=== PATIENT | female | born 1990 | race Caucasian/White ===

== ENCOUNTER 2022-02-03 01:13 | Emergency (ER) | payer SELFPAY ==
[2022-02-03 03:11] LABS: Absolute Lymphocytes (CBC) 4.7 K/uL (0.7-4.9); Hematocrit 32.4 % (36.0-45.0); Lymphocytes % 51.3 % (15.3-44.8); MPV 7.7 fL (7.6-11.3); RBC Red Blood Cell Count 3.27 M/uL (3.86-4.86)
[2022-02-03 03:28] LABS: Albumin 4.4 g/dL (3.4-5.0); Bilirubin Total 0.4 mg/dL (0.2-1.0); Potassium 3.4 mmol/L (3.5-5.1); Protein, Total 7.8 g/dL (6.4-8.2)
[2022-02-03 03:47] LABS: Blood Morphology Comment NOT SEEN (NOT SEEN); Platelet Estimate ADEQ
[2022-02-03] MEDS ORDERED: MORPHINE 4 MG/ML SYR ONE (04:46)
[2022-02-03] MEDS ORDERED: ONDANSETRON 4 MG/2 ML VIAL ONE (04:46)
--- NOTE | 2022-02-03 04:55 | ER ---
Nurse's Notes [facility] Name: Yadira Gauthier Age: 31 yrs Sex: Female : 1990 Arrival Date: 02/03/2022 Time: 01:17 Bed 8 Private MD: Diagnosis: Headache;Spinal/Musculoskeletal Presentation: 02/03 01:36 Chief complaint: Patient states: "I have a spine disease and I got hit by my sons bed vc1 and not there's lots of pressure and where I normally have a crevice on my head there's not one right now and it feels like my head is pulsating.". Coronavirus screen: Vaccine status: Patient reports being unvaccinated. Ebola Screen: No symptoms or risks identified at this time. Initial Sepsis Screen: Does the patient meet any 2 criteria? No. Patient's initial sepsis screen is negative. Does the patient have a suspected source of infection? No. Patient's initial sepsis screen is negative. Risk Assessment: Do you want to hurt yourself or someone else? Patient reports no desire to harm self or others. Onset of symptoms is unknown. 01:36 Method Of Arrival: Ambulatory vc1 01:36 Acuity: ADÁN 3 vc1 Triage Assessment: 01:42 Headache History: The patient has had previous headaches. General: Appears in no vc1 apparent distress. uncomfortable, Behavior is calm, cooperative, appropriate for age. Pain: Complains of pain in face and left sternocleidomastoid Pain radiates to left sternocleidomastoid Pain currently is 7 out of 10 on a pain scale. Pain began gradually, Also complains of nausea, inability to perform activities of daily living, sleeplessness. Neuro: Level of Consciousness is awake, alert, obeys commands, Oriented to person, place, time, situation, Appropriate for age. 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 - Social history:: Smoking status: Patient reports the use of cigarette tobacco products, smokes one-half pack cigarettes per day. Screenin:11 Abuse screen: Denies threats or abuse. Denies injuries from another. Nutritional kd3 screening: No deficits noted. Tuberculosis screening: No symptoms or risk factors identified. Fall Risk IV access (20 points). Vital Signs: 01:36 BP 118 / 85; Pulse 58; Resp 16; Temp 98.8; Pulse Ox 98% on R/A; Weight 54.43 kg; Height vc1 5 ft. 4 in. (162.56 cm); Pain 8/10; 01:36 Body Mass Index 20.60 (54.43 kg, 162.56 cm) vc1 ED Course: 01:17 Patient arrived in ED. wm 01:42 Triage completed. vc1 01:45 Arm band placed on right wrist. vc1 01:47 Juan Owens MD is Attending Physician. kdr 01:51 Jennifer Ho RN is Primary Nurse. kd3 02:28 CT Head Brain wo Cont In Process Unspecified. EDMS 02:41 Missed attempt(s): 20 gauge in left antecubital area. Bleeding controlled, band aid al4 applied, catheter tip intact. 02:53 I went into the patients room, her spouse was sitting in the bed with her. I introduced st1 myself and asked her to remove her thick sweatshirt so vital signs ( BP) can be taken accurately. I also informed her that the doctor ordered an IV access and labs which will be drawn from her IV access once it is established. The patient began to curse. " why the fuck do you have it so cold in the ER and why the fuck do you want me to take off my sweatshirt when you fucking people have it so cold in here". Her was attempting to calm her down asking her to remove her sweatshirt in which she complied. She then stated, : can I at least keep my god damn shirt on", which I replied yes as I handed her a hospital gown. I sat down to the right side of the patient and asked if I could use her right arm to start her IV. She said, " I don't even want to be here", as she looked at her spouse. " I want to leave because of these fucking stupid people and their IV shit". Her stated, we need to see what is wrong with you and do you want me to tell the kids you walked out of the ER? The patients response was, " I dont care what you tell the fucking kids because you are forcing me to be here and if this bitch hurts my arm with the IV I will rip it out because I don't want to be here". I informed the patient that I will do my best not to hurt her, as she turned to me and stated she did not want the IV access. I informed both the patient and her spouse that once she is ready for an IV, to let me know and I will come back to start her IV and draw the labs ordered. 02:55 The patients spouse came to the station 1 nurses station, apologized, and stated she is st1 ready for her IV. ( SHARI Gross witnessed this interaction.). 02:57 I went into the patients room #8 with the IV access items and asked the patient which st1 arm she would like to have me start her IV. The patient held out both of her arms and stated, " stick me where ever you want as I don't have a choice". I stated, " I am giving you a choice on which arm you would like IV access in". She stated, I don't care because you can stick me and then I am going to turn you in because I don't want and IV in my arm". I told her that I will not be starting an IV on her at this time and I walked out of the room. I notified SHARI Eduardo charge nurse and Dr. Owens on the interaction that I had with the patient. 03:11 Patient has correct armband on for positive identification. Placed in gown. Bed in low kd3 position. Call light in reach. 03:11 CBC with Diff Sent. kd3 03:11 CMP Sent. kd3 05:03 No provider procedures requiring assistance completed. Inserted saline lock: 22 gauge kd3 in right antecubital area, using aseptic technique. IV discontinued, intact, bleeding controlled, No redness/swelling at site. Pressure dressing applied. Administered Medications: 04:47 Drug: morphine 4 mg Route: IVP; Site: right antecubital; kd3 04:47 Drug: Zofran (Ondansetron) 4 mg Route: IVP; Site: right antecubital; kd3 Outcome: 04:54 Discharge ordered by . kdr 05:04 Discharged to home ambulatory. kd3 05:04 Condition: stable 05:04 Discharge instructions given to patient, family, Instructed on discharge instructions, follow up and referral plans. Demonstrated understanding of instructions, follow-up care, medications, Prescriptions given X 1. 05:05 Patient left the ED. kd3 Signatures: Dispatcher [employer] EDMS Juan Owens MD MD kdr Marsh, Wendy wm Doucette, Kyli, RN RN kd3 Onofre Davalos Shellie, RN RN st1 Samantha Rasmussen RN RN vc1 Corrections: (The following items were deleted from the chart) 03:03 02:03 The patient has become aggressive and argumentative, using foul language toward st1 me and her spouse. She has refused her IV 2 times and has threatened to rip her IV out if it hurts her. I asked which arm she wants her IV in, she stated, " it is not my choice, it is your choice and I will be turning you into administration after you put that damn IV in my arm." I did not place the IV in the patient. SHARI Eduardo and Dr. Owens notified of the patients refusal. st1 03:05 03:03 The patients spouse came to the station 1 nurses station, apologized, and stated st1 she is ready for her IV. ( SHARI Gross witnessed this interaction. st1 03:14 02:55 The patients spouse came to the station 1 nurses station, apologized, and stated st1 she is ready for her IV. ( SHARI Gross witnessed this interaction. st1
--- NOTE | 2022-02-03 04:55 | EDPHYS ---
Physician Documentation [facility] Name: Yadira Gauthier Age: 31 yrs Sex: Female : 1990 Arrival Date: 02/03/2022 Time: 01:17 Bed 8 Private MD: ED Physician Juan Owens HPI: 02/03 04:50 This 31 yrs old Female presents to ER via Ambulatory with complaints of Headache, kdr Vomiting, Blurred Vision, Spine pain. 04:50 Patient presents with multiple medical complaints including headache, spine pain from kdr her neck down to her low back. She states that she has some chronic headaches. That all of the symptoms have been ongoing for many months if not years. She has had several traumatic events involving head injuries. These have left her with chronic intermittent but persistent headaches and spine pain. Patient does not appear toxic or acutely ill or in any state requiring emergent intervention at the time of initial presentation. Further she stated in the state until discharge.. Onset: The symptoms/episode began/occurred at an unknown time. Is been ongoing for years. Severity of symptoms: At their worst the symptoms were in the emergency department the symptoms are unchanged. The patient has experienced similar episodes in the past, chronically. The patient has not recently seen a physician. Currently looking for local PCP. 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 - Social history:: Smoking status: Patient reports the use of cigarette tobacco products, smokes one-half pack cigarettes per day. ROS: 04:50 Constitutional: Negative for fever, chills, and weight loss, Eyes: Negative for injury, kdr pain, redness, and discharge, Neck: Negative for injury, pain, and swelling, Cardiovascular: Negative for chest pain, palpitations, and edema, Respiratory: Negative for shortness of breath, cough, wheezing, and pleuritic chest pain, Abdomen/GI: Negative for abdominal pain, nausea, vomiting, diarrhea, and constipation, Back: Negative for injury and pain, : Negative for injury, bleeding, discharge, and swelling, MS/Extremity: Negative for injury and deformity, Skin: Negative for injury, rash, and discoloration, Psych: Negative for depression, anxiety, suicide ideation, homicidal ideation, and hallucinations, Allergy/Immunology: Negative for hives, rash, and allergies, Endocrine: Negative for neck swelling, polydipsia, polyuria, polyphagia, and marked weight changes, Hematologic/Lymphatic: Negative for swollen nodes, abnormal bleeding, and unusual bruising. 04:50 Neuro: Positive for altered mental status, dizziness, headache, weakness. Exam: 04:50 Constitutional: This is a well developed, well nourished patient who is awake, alert, kdr and in mild distress. Head/Face: Normocephalic, atraumatic. Eyes: Pupils equal round and reactive to light, extra-ocular motions intact. Lids and lashes normal. Conjunctiva and sclera are non-icteric and not injected. Cornea within normal limits. Periorbital areas with no swelling, redness, or edema. Neck: Trachea midline, no thyromegaly or masses palpated, and no cervical lymphadenopathy. Supple, full range of motion without nuchal rigidity, or vertebral point tenderness. No Meningismus. Chest/axilla: Normal chest wall appearance and motion. Nontender with no deformity. No lesions are appreciated. Cardiovascular: Regular rate and rhythm with a normal S1 and S2. No gallops, murmurs, or rubs. Normal PMI, no JVD. No pulse deficits. Respiratory: Lungs have equal breath sounds bilaterally, clear to auscultation and percussion. No rales, rhonchi or wheezes noted. No increased work of breathing, no retractions or nasal flaring. Abdomen/GI: Soft, non-tender, with normal bowel sounds. No distension or tympany. No guarding or rebound. No evidence of tenderness throughout. Back: No spinal tenderness. No costovertebral tenderness. Full range of motion. Skin: Warm, dry with normal turgor. Normal color with no rashes, no lesions, and no evidence of cellulitis. MS/ Extremity: Pulses equal, no cyanosis. Neurovascular intact. Full, normal range of motion. Neuro: Awake and alert, GCS 15, oriented to person, place, time, and situation. Cranial nerves II-XII grossly intact. Motor strength 5/5 in all extremities. Sensory grossly intact. Cerebellar exam normal. Normal gait. Psych: Awake, alert, with orientation to person, place and time. Behavior, mood, and affect are within normal limits. Vital Signs: 01:36 BP 118 / 85; Pulse 58; Resp 16; Temp 98.8; Pulse Ox 98% on R/A; Weight 54.43 kg; Height vc1 5 ft. 4 in. (162.56 cm); Pain 8/10; 01:36 Body Mass Index 20.60 (54.43 kg, 162.56 cm) vc1 MDM: 04:50 Data reviewed: vital signs, nurses notes. Counseling: I had a detailed discussion with kdr the patient and/or guardian regarding: the historical points, exam findings, and any diagnostic results supporting the discharge/admit diagnosis, lab results, radiology results, the need for outpatient follow up. ED course: Patient was stable in the ED. She was nontoxic at all times. She had partial relief of her discomfort with the interventions given. She was happy with the care provided the plan for discharge and follow-up. 04:54 Patient medically screened. kdr 02/03 01:48 Order name: CBC with Diff kdr 02/03 01:48 Order name: CMP; Complete Time: 03:55 kdr 02/03 01:48 Order name: CT Head Brain wo Cont kdr 02/03 01:49 Order name: CBC with Automated Diff; Complete Time: 03:55 EDMS 02/03 03:46 Order name: Manual Differential; Complete Time: 03:55 EDMS 02/03 01:48 Order name: IV Saline Lock; Complete Time: 03:11 kdr 02/03 01:48 Order name: Labs collected and sent; Complete Time: 03:11 kdr Administered Medications: 04:47 Drug: morphine 4 mg Route: IVP; Site: right antecubital; kd3 04:47 Drug: Zofran (Ondansetron) 4 mg Route: IVP; Site: right antecubital; kd3 Disposition Summary: 02/03/22 04:54 Discharge Ordered Location: Home kdr Problem: chronic kdr Symptoms: have improved kdr Condition: Stable kdr Diagnosis - Headache kdr - Spinal/Musculoskeletal kdr Followup: kdr - With: Private Physician - When: 2 - 3 days - Reason: If symptoms return, Further diagnostic work-up, Recheck today's complaints, Continuance of care, Re-evaluation by your physician Discharge Instructions: - Discharge Summary Sheet kdr - General Headache Without Cause kdr - Migraine Headache, [id number] kdr - Tension Headache, Adult, [id number] kdr - Head Injury, Adult, [id number] kdr Forms: - Medication Reconciliation Form kdr - Thank You Letter kdr - Antibiotic Education kdr - Prescription Opioid Use kdr - Family Work Release kd3 Prescriptions: - Tramadol 50 mg Oral Tablet - take 1 tablet by ORAL route every 8 hours as needed; 12 tablet; Refills: 0, kdr Product Selection Permitted Signatures: Dispatcher [employer] EDMS Juan Owens MD MD kdr Doucette, Kyli, RN RN kd3 Samantha Rasmussen RN RN vc1 Corrections: (The following items were deleted from the chart) 03:46 03:13 CBC Smear Scan ordered. EDMS EDMS
[2022-02-03 08:06] VITALS: BP 118/85; TEMP 98.8; O2SAT 98
--- NOTE | 2022-02-03 11:16 | RAD REPORT ---
EXAM DESCRIPTION: CT - Head Brain Wo Cont - 02/03/2022 6:12 am CLINICAL HISTORY: 31 years, Female, HEADACHE COMPARISON: None. FINDINGS: Multiple transaxial tomograms of the brain were obtained from the base of the skull to the vertex without contrast. 2-D multiplanar reformats and the coronal and sagittal plane were performed and reviewed. This exam was performed according to our departmental dose-optimization protocol, which includes auto mated exposure control, adjustment of the mA and/or kV according to patient size and/or use of iterat nakita reconstruction technique. Brain parenchyma as well as the manning and white matter differentiation demonstrate to be unremarkable. There is no midline shift and/or mass effect. There is no evidence for acute hemorrhage. No focal ar eas of hypodensities. Lateral ventricles and cisterns displace normal appearance. No intra or ext ra axial fluid collections were seen. The calvarium is intact with no evidence for fracture. The visu alized portions of the paranasal sinuses and orbits demonstrate to be clear. IMPRESSION: NO ACUTE INTRACRANIAL HEMORRHAGE. UNREMARKABLE CT SCAN OF THE HEAD WITHOUT CONTRAST. Electronically signed by: Juan Carlos Baldwin MD 02/03/2022 2:56 AM CDT Due to temporary technical issues with the PACS/Fluency reporting system, reports are being signed by the in house radiologist without review as a courtesy to ensure prompt reporting. The interpreting r adiologist is fully responsible for the content of the report.
== END 2022-02-03 05:05 | disposition home or self-care (01) ==
LOC: ER 01:13
DX: R51.9 Headache, unspecified (principal); R53.1 Weakness; F17.210 Nicotine dependence, cigarettes, uncomplicated; Z91.040 Latex allergy status; Z91.048 Other nonmedicinal substance allergy status
CPT/HCPCS: 36415; 70450; 80053; 85025; 96374; 96375; 99284; J2405

== ENCOUNTER 2022-02-08 00:35 | Emergency (ER) | payer SELFPAY ==
[2022-02-08] MEDS ORDERED: METOCLOPRAMIDE 10 MG/2mL INJ ONE (01:07)
[2022-02-08] MEDS ORDERED: NA CHLORIDE 0.9% 1,000 ML ONE (01:07)
[2022-02-08] MEDS ORDERED: DIPHENHYDRAMINE 50 MG/ML VIAL ONE (01:07)
[2022-02-08 01:36] LABS: Absolute Lymphocytes (CBC) 4.1 K/uL (0.7-4.9); Hematocrit 32.6 % (36.0-45.0); Lymphocytes % 40.5 % (15.3-44.8); MPV 7.7 fL (7.6-11.3); RBC Red Blood Cell Count 3.28 M/uL (3.86-4.86)
--- NOTE | 2022-02-08 01:36 | ER ---
Nurse's Notes [facility] Name: Yadira Gauthier Age: 31 yrs Sex: Female : 1990 Arrival Date: 02/08/2022 Time: 00:39 Bed 6 Private MD: Diagnosis: Migraine without aura, not intractable Presentation: 02/08 00:47 Chief complaint: Patient states: "I have a shooting head pain, and it is shooting down tw5 to my vag. I have terrible endometriosis." Boyfriend states "She lost consciousness at least one that I know of.". Coronavirus screen:. Ebola Screen: Patient negative for fever greater than or equal to 101.5 degrees Fahrenheit, and additional compatible Ebola Virus Disease symptoms Patient denies exposure to infectious person. Patient denies travel to an Ebola-affected area in the 21 days before illness onset. Initial Sepsis Screen: Does the patient meet any 2 criteria? No. Patient's initial sepsis screen is negative. Does the patient have a suspected source of infection? No. Patient's initial sepsis screen is negative. Risk Assessment: Do you want to hurt yourself or someone else? Patient reports no desire to harm self or others. Onset of symptoms is unknown. 00:47 Method Of Arrival: Wheelchair tw 00:51 Coronavirus screen: Vaccine status: Patient reports being unvaccinated. 00:51 Acuity: ADÁN 3 tw5 Triage Assessment: 00:50 Headache History: The patient has had previous headaches and this one is similar to tw5 previous episodes. General: Appears slender, unkempt, Behavior is calm, cooperative, appropriate for age. Pain: Pain currently is 8 out of 10 on a pain scale. Pain began unknown Also complains of photophobia, inability to concentrate. Neuro: Level of Consciousness is awake, alert, obeys commands, Oriented to person, place, time, situation. 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 - Social history:: Smoking status: Patient reports the use of cigarette tobacco products, smokes one pack cigarettes per day. Patient uses street drugs, marijuana. Screenin:52 Abuse screen: Denies threats or abuse. Denies injuries from another. Nutritional tw5 screening: No deficits noted. Assessment: 01:00 General: Appears uncomfortable, slender, unkempt, emaciated, Behavior is anxious. Pain: as6 Complains of pain in headache. Neuro: Reports headache in entire that is the "worst ever", weakness. 02:41 General: "I want to go home. I am anxious being here and I think this is just stress as6 and I just want to go home and sleep. I don't want my scan or to wait for my lab results" pt signed AMA form, provider notified . Vital Signs: 00:47 BP 106 / 71; Pulse 70; Resp 18; Temp 98.1; Pulse Ox 100% on R/A; Weight 54.43 kg; tw5 Height 5 ft. 4 in. (162.56 cm); Pain 8/10; 00:47 Body Mass Index 20.60 (54.43 kg, 162.56 cm) tw5 ED Course: 00:39 Patient arrived in ED. ja2 00:44 Gabriela Valero, SHARI is Primary Nurse. lg3 00:46 Evin Braxton PA is PHCP. jr8 00:46 Helio Braun MD is Attending Physician. jr8 00:50 Arm band placed on right wrist. tw5 00:51 Triage completed. tw5 01:20 Inserted saline lock: 20 gauge in left antecubital area, using aseptic technique. Blood as6 collected. 01:24 CBC with Diff Sent. as6 01:24 Basic Metabolic Panel Sent. as6 01:24 Magnesium Sent. as6 01:24 TSH Sent. as6 01:24 T4 Free Sent. as6 01:24 CBC with Automated Diff Sent. as6 01:30 No provider procedures requiring assistance completed. IV discontinued, intact, as6 bleeding controlled, No redness/swelling at site. Pressure dressing applied. Administered Medications: 01:24 Drug: NS 0.9% 1000 ml Route: IV; Rate: 1000 ml; Site: left antecubital; as6 01:35 Follow up: Response: No adverse reaction; IV Status: Order to discontinue infusion; IV as6 Intake: 75ml 01:24 Drug: Reglan (metoCLOPramide) 10 mg Route: IVP; Site: left antecubital; as6 01:35 Follow up: Response: No adverse reaction as6 01:24 Drug: Benadryl (diphenhydrAMINE) 25 mg Route: IVP; Site: left antecubital; as6 01:34 Follow up: Response: No adverse reaction as6 Intake: 01:35 IV: 75ml; Total: 75ml. as6 Outcome: 02:09 Patient left the ED. 02:44 AMA AMA form signed as6 02:44 Condition: stable Signatures: Evin Braxton PA PA jr8 Gabriela Valero RN RN lg3 Kamryn Heredia Tiffany tw5 Joe Stafford RN RN as6
--- NOTE | 2022-02-08 01:36 | EDPHYS ---
Physician Documentation [facility] Name: Yadira Gauthier Age: 31 yrs Sex: Female : 1990 Arrival Date: 02/08/2022 Time: 00:39 Bed 6 Private MD: ED Physician Helio Braun HPI: 02/08 01:18 This 31 yrs old Female presents to ER via Wheelchair with complaints of Headache, Neck jr8 Pain, <24hrs Old, Fainting. 01:18 The patient has not experienced similar symptoms in the past. The patient has not jr8 recently seen a physician. This is a 31-year-old female with a history of migraines who presented to the emergency room with continued headaches for the past 5 days. Patient was seen in the emergency room here 5 days ago and had blood work and a CT done that did not reveal any acute findings. Was medicated and sent home to follow-up. Patient came back today for continued symptoms. Stated that she is also been dizzy, has nausea, has photophobia.. D[employer]ER: 00:50 LMP N/A - Hysterectomy tw Historical: - Allergies: 00:50 Latex, Natural Rubber; tw - Home Meds: 00:50 None [Active]; tw - PMHx: 00:50 Bronchitis; Endometriosis of vagina; spondylosis; tw - PSHx: 00:50 Total abdominal hysterectomy; tw - Immunization history:: Flu vaccine is not up to date. - Social history:: Smoking status: Patient reports the use of cigarette tobacco products, smokes one pack cigarettes per day. Patient uses street drugs, marijuana. ROS: 01:18 Eyes: Negative for injury, pain, redness, and discharge, ENT: Negative for injury, jr8 pain, and discharge, Neck: Negative for injury, pain, and swelling, Cardiovascular: Negative for chest pain, palpitations, and edema, Respiratory: Negative for shortness of breath, cough, wheezing, and pleuritic chest pain, Back: Negative for injury and pain, MS/Extremity: Negative for injury and deformity, Skin: Negative for injury, rash, and discoloration. 01:18 Abdomen/GI: Positive for nausea, Negative for abdominal pain, vomiting, diarrhea. 01:18 Neuro: Positive for dizziness, headache. Exam: 01:18 Constitutional: This is a well developed, well nourished patient who is awake, alert, jr8 and in no acute distress. Eyes: Pupils equal round and reactive to light, extra-ocular motions intact. Lids and lashes normal. Conjunctiva and sclera are non-icteric and not injected. Cornea within normal limits. Periorbital areas with no swelling, redness, or edema. ENT: Nares patent. No nasal discharge, no septal abnormalities noted. Tympanic membranes are normal and external auditory canals are clear. Oropharynx with no redness, swelling, or masses, exudates, or evidence of obstruction, uvula midline. Mucous membranes moist. Neck: Trachea midline, no thyromegaly or masses palpated, and no cervical lymphadenopathy. Supple, full range of motion without nuchal rigidity, or vertebral point tenderness. No Meningismus. Cardiovascular: Regular rate and rhythm with a normal S1 and S2. No gallops, murmurs, or rubs. Normal PMI, no JVD. No pulse deficits. Respiratory: Lungs have equal breath sounds bilaterally, clear to auscultation and percussion. No rales, rhonchi or wheezes noted. No increased work of breathing, no retractions or nasal flaring. Abdomen/GI: Soft, non-tender, with normal bowel sounds. No distension or tympany. No guarding or rebound. No evidence of tenderness throughout. Skin: Warm, dry with normal turgor. Normal color with no rashes, no lesions, and no evidence of cellulitis. MS/ Extremity: Pulses equal, no cyanosis. Neurovascular intact. Full, normal range of motion. Neuro: Awake and alert, GCS 15, oriented to person, place, time, and situation. Cranial nerves II-XII grossly intact. Motor strength 5/5 in all extremities. Sensory grossly intact. Cerebellar exam normal. Normal gait. Vital Signs: 00:47 BP 106 / 71; Pulse 70; Resp 18; Temp 98.1; Pulse Ox 100% on R/A; Weight 54.43 kg; tw5 Height 5 ft. 4 in. (162.56 cm); Pain 8/10; 00:47 Body Mass Index 20.60 (54.43 kg, 162.56 cm) tw5 MDM: 00:46 Patient medically screened. [facility] 01:18 Data reviewed: vital signs, nurses notes. Counseling: I had a detailed discussion with jr8 the patient and/or guardian regarding:. ED course: After patient was medicated patient wanted to go home and wanted no further work-up at this time. Feels that it is more stress related and did not want us to complete any other imaging or lab tests.. 02/08 01:01 Order name: CBC with Diff jr8 02/08 01:01 Order name: Basic Metabolic Panel; Complete Time: 16:27 jr8 02/08 01:01 Order name: Magnesium; Complete Time: 16:27 jr8 02/08 01:01 Order name: T4 Free; Complete Time: 16:27 jr8 02/08 01:01 Order name: TSH; Complete Time: 16:27 jr8 02/08 01:02 Order name: CBC with Automated Diff; Complete Time: 01:39 EDOH 02/08 01:01 Order name: IV; Complete Time: 01:24 jr8 Administered Medications: 01:24 Drug: NS 0.9% 1000 ml Route: IV; Rate: 1000 ml; Site: left antecubital; as6 01:35 Follow up: Response: No adverse reaction; IV Status: Order to discontinue infusion; IV as6 Intake: 75ml 01:24 Drug: Reglan (metoCLOPramide) 10 mg Route: IVP; Site: left antecubital; as6 01:35 Follow up: Response: No adverse reaction as6 01:24 Drug: Benadryl (diphenhydrAMINE) 25 mg Route: IVP; Site: left antecubital; as6 01:34 Follow up: Response: No adverse reaction as6 Disposition: 07:11 Co-signature as Attending Physician, Helio Braun MD I agree with the assessment and justina plan of care. Disposition Summary: 02/08/22 01:35 Left Against Medical Advice Location: Home jr8 Problem: new jr8 Symptoms: are unchanged jr8 Condition: Stable jr8 Diagnosis - Migraine without aura, not intractable jr8 Followup: jr8 - With: Private Physician - When: 1 - 2 days - Reason: Recheck today's complaints, Continuance of care, Re-evaluation by your physician Signatures: Dispatcher [employer] Helio Hoffman MD MD cha Roszak, Josh, PA PA jr8 Nicolasa Diggs tw5 Joe Stafford RN RN as6
[2022-02-08 01:55] LABS: Magnesium 2.5 mg/dL (1.8-2.4); Potassium 3.3 mmol/L (3.5-5.1); Thyroid Stimulating Hormone 1.96 uIU/mL (0.360-3.740)
[2022-02-08 03:24] VITALS: BP 106/71; TEMP 98.1; O2SAT 100
== END 2022-02-08 02:09 | disposition left against medical advice (07) ==
LOC: ER 00:35
DX: G43.009 Migraine without aura, not intractable, without status migrainosus (principal); R11.0 Nausea; F17.210 Nicotine dependence, cigarettes, uncomplicated; Z91.040 Latex allergy status; Z91.048 Other nonmedicinal substance allergy status
CPT/HCPCS: 36415; 80048; 83735; 84439; 84443; 85025; 96374; 96375; 99283; J1200; J2765; J7030